=== PATIENT | male | born 1985 | race Caucasian/White ===

== ENCOUNTER 2016-12-15 14:13 | Emergency (ER) | payer SELFPAY ==
--- NOTE | 2016-12-15 14:42 | EDM.PDOC ---
ED HPI GENERAL MEDICAL PROBLEM - General Chief Complaint: Headache Stated Complaint: HEADACHES Time Seen by Provider: 12/15/16 14:23 - History of Present Illness INITIAL COMMENTS - FREE TEXT/NARRATIVE: HISTORY AND PHYSICAL: History of present illness: The patient is a 31-year-old male with a history of having headaches who has been seen by our neurologist Dr. Helton and has had testing including an MRI MRA of the head done at the end of November of this year. He had had some abnormal findings on a prior MRI so was repeated here and no abnormal findings were seen and there was no arterial circulatory issues. The patient states that since having that MRI/MRA he has not followed up with Dr. Helton and he had orders to have blood work done which he was supposed to have done in November but he has not done that yet and schedule to do it this Monday. The patient presents to the ED today with complaints of a several second long episode of "his mind going blank". What he is saying to me is that he was asked a question by a coworker which was very simple and he should've had the answer very quickly and easily and he felt like his mind went blank and then he was back to his baseline. He had no dizziness or lightheadedness no nausea no visual changes and no neural sensory changes or focal weakness. He did not pass out or black out and he has no neck or back pain. He has no recent trauma. The patient states he has had on-and-off headaches for the end of November and prior to seeing Dr. Helton which are not new or different. He takes a low-dose aspirin for these headaches. When he had this episode he took 4 baby aspirin because of his concerns. He was told to come in for evaluation if something like this ever happened. According to the patient he does feel like he is dehydrated as he has not been drinking much water or juices and did have alcohol last evening consisting of 2 mixed drinks and 4 shots of liquor. The patient currently does not feel confused and is at his baseline and has no focal neurologic complaints. He never had any speech or swallowing issues with his above symptoms. Review of systems: As per history of present illness and below otherwise all systems reviewed and negative. Past medical history: As per history of present illness and as reviewed below otherwise noncontributory. Surgical history: As per history of present illness and as reviewed below otherwise noncontributory. Social history: No reported history of drug or alcohol abuse. Family history: As per history of present illness and as reviewed below otherwise noncontributory. Physical exam: Gen.: Well-developed well-nourished man who is nontoxic and speaking clearly and easily in the ED. He moves easily without distress. Vital signs have been noted by me. HEENT: Atraumatic, normocephalic, pupils reactive, negative for conjunctival pallor or scleral icterus, mucous membranes moist, throat clear, neck supple, nontender, trachea midline. No nuchal rigidity or cervical adenopathy Lungs: Clear to auscultation, breath sounds equal bilaterally, chest nontender. Heart: S1S2, regular rate and rhythm no overt murmurs Abdomen: Soft, nondistended, nontender. Negative for masses or hepatosplenomegaly. Negative for costovertebral tenderness. Pelvis: Stable nontender. Genitourinary: Deferred. Rectal: Deferred. Extremities: Atraumatic, negative for cords or calf pain. Neurovascular unremarkable. Neuro: Awake, alert, oriented. Cranial nerves II through XII unremarkable. Cerebellum unremarkable. Motor and sensory unremarkable throughout. Exam nonfocal. Full range of motion without any drift in all extremities and gait is normal in the ED. Speech is intact. Diagnostics: CBC CMP CT scan of the head EKG Therapeutics: [] 1438: Case was discussed with Dr. Helton as the patient has been seen by her and was advised to come here if symptoms like this had occurred. According to her she was doing a hypercoagulable workup which she still wants the patient to go to outpatient lab and perform and she only wants a 6 CBC CMP and CAT scan of the head here. She states that the patient does have a history of alcohol use/ abuse which may be contributing to some of the symptomatology. I discussed with the patient my conversation with the neurologist and the plan to do CBC CMP EKG and CT scan of the head. I have reviewed the results of the MRI/MRA of the head performed December 01 of this year Impression: Brief episode of confusion stable etiology unclear Definitive disposition and diagnosis as appropriate pending reevaluation and review of above. headache Pain Score (Numeric/FACES): 4 - Related Data Allergies Allergy/AdvReac Type Severity Reaction Status Date / Time No Known Allergies Allergy Verified 12/15/16 14:31 Home Meds: Home Meds Aspirin [Lizy Chewable] 81 mg PO DAILY 12/15/16 [History] Past Medical History - Past Health History Medical/Surgical History: Denies Medical/Surgical History HEENT History: Reports: Sinusitis - Past Surgical History HEENT Surgical History: Reports: Adenoidectomy, Tonsillectomy Other HEENT Surgeries/Procedures: nasal septum surgery - 10 yrs ago Social & Family History - Tobacco Use Smoking Status *Q: Never Smoker Second Hand Smoke Exposure: No - Recreational Drug Use Recreational Drug Use: No ED ROS GENERAL - Review of Systems Review Of Systems: ROS reveals no pertinent complaints other than HPI. ED EXAM, GENERAL - Physical Exam Exam: See Below (See dictation) Course - Vital Signs Last Recorded V/S: Last Vital Signs Temp 36.3 C 12/15/16 14:32 Pulse 65 12/15/16 14:32 Resp 18 12/15/16 14:32 BP 131/63 12/15/16 14:32 Pulse Ox 97 12/15/16 14:32 - Orders/Labs/Meds Orders: Active Orders 24 hr Category Date Time Status EKG Documentation Completion [RC] STAT Care 12/15/16 14:42 Active Labs: Laboratory Tests 12/15/16 12/15/16 12/15/16 Range/Units 15:00 15:00 15:00 WBC 5.23 (4.0-11.0) K/uL RBC 4.88 (4.50-5.90) M/uL Hgb 15.7 (13.0-17.0) g/dL Hct 45.2 (38.0-50.0) % MCV 92.6 (80.0-98.0) fL MCH 32.2 H (27.0-32.0) pg MCHC 34.7 (31.0-37.0) g/dL RDW Std Deviation 49.8 (28.0-62.0) fl RDW Coeff of Kamryn 15 (11.0-15.0) % Plt Count 147 L (150-400) K/uL MPV 8.70 (7.40-12.00) fL Neut % (Auto) 61.7 (48.0-80.0) % Lymph % (Auto) 24.3 (16.0-40.0) % [place] % (Auto) 11.1 (0.0-15.0) % Eos % (Auto) 2.5 (0.0-7.0) % Baso % (Auto) 0.4 (0.0-1.5) % Neut # (Auto) 3.2 (1.4-5.7) K/uL Lymph # (Auto) 1.3 (0.6-2.4) K/uL [place] # (Auto) 0.6 (0.0-0.8) K/uL Eos # (Auto) 0.1 (0.0-0.7) K/uL Baso # (Auto) 0.0 (0.0-0.1) K/uL Nucleated RBC % 0.0 /100WBC Nucleated RBCs # 0 K/uL Sodium 138 (136-146) mmol/L Potassium 4.2 (3.5-5.1) mmol/L Chloride 103 (98-110) mmol/L Carbon Dioxide 27 (21-31) mmol/L BUN 14 (6.0-23.0) mg/dL Creatinine 0.9 (0.6-1.5) mg/dL Est Cr Clr Drug Dosing 125.50 mL/min Estimated GFR (MDRD) > 60.0 ml/min Glucose 87 (60-110) mg/dL Calcium 9.4 (8.8-10.8) mg/dL Total Bilirubin 0.9 (0.1-1.5) mg/dL AST 41 H (5-40) IU/L ALT 38 (8-54) IU/L Alkaline Phosphatase 62 (40-150) Troponin I < 0.10 (0.0-0.29) NG/ML Total Protein 7.8 (6.0-8.0) g/dL Albumin 4.5 (3.5-5.0) g/dL Globulin 3.3 (2.0-3.5) g/dL Albumin/Globulin Ratio 1.4 (1.3-2.8) Departure - Departure Time of Disposition: 15:51 Disposition: Home, Self-Care 01 Condition: Good Clinical Impression: Episode of confusion Chronic headaches Qualifiers: Headache type: unspecified Intractability: not intractable Qualified Code(s): R51 - Headache - Discharge Information Forms: ED Department Discharge Additional Instructions: The following information is given to patients seen in the emergency department who are being discharged to home. This information is to outline your options for follow-up care. We provide all patients seen in our emergency department with a follow-up referral. The need for follow-up, as well as the timing and circumstances, are variable depending upon the specifics of your emergency department visit. If you don't have a primary care physician on staff, we will provide you with a referral. We always advise you to contact your personal physician following an emergency department visit to inform them of the circumstance of the visit and for follow-up with them and/or the need for any referrals to a consulting specialist. The emergency department will also refer you to a specialist when appropriate. This referral assures that you have the opportunity for followup care with a specialist. All of these measure are taken in an effort to provide you with optimal care, which includes your followup. Under all circumstances we always encourage you to contact your private physician who remains a resource for coordinating your care. When calling for followup care, please make the office aware that this follow-up is from your recent emergency room visit. If for any reason you are refused follow-up, please contact the [facility] emergency department at and ask to speak to the emergency department charge nurse. [facility] Specialty care-[facility] [address] [place] [address], [address] [place] [address] [facility] Primary care- Internal Medicine and Family [address] [id number] Please perform the outpatient tests that were ordered by Dr. Helton and call and follow-up with her in her clinic. Return to ER as needed and as discussed. - My Orders Last 24 Hours: My Active Orders 12/15/16 14:42 EKG Documentation Completion [RC] STAT - Assessment/Plan Last 24 Hours: My Active Orders 12/15/16 14:42 EKG Documentation Completion [RC] STAT
--- NOTE | 2016-12-15 15:30 | CT ---
EXAMINATION: Non contrast CT head. Coronal and sagittal reformats. HISTORY: Pain COMPARISON: MRI dated 12/01/2016. FINDINGS: No evidence of intra or extra axial hemorrhage, midline shift, hydrocephalus or edema. 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 No hypoattenuation changes in the major vascular territories to suggest acute infarct. No abnormal intracranial calcifications are detected. No evidence of substantial vascular calcifications. Paranasal sinuses and mastoid air cells are well aerated without substantial findings. Pituitary fo ssa appears unremarkable. Calvarium is intact. No evidence of skull fracture. IMPRESSION: No acute intracranial findings.
[2016-12-15 15:34] LABS: CHLORIDE,CL 103 mmol/L (98-110); SODIUM,NA 138 mmol/L (136-146)
[2016-12-15 16:15] VITALS: BP 123/81
== END 2016-12-15 16:07 | disposition home or self-care (01) ==
LOC: MW.ED 14:13
DX: R51 Headache (principal); R41.0 Disorientation, unspecified; Z98.890 Other specified postprocedural states; Z79.82 Long term (current) use of aspirin
CPT/HCPCS: 36415; 70450; 70450-26; 80053; 84484; 85025; 93005; 99283; 99284-25

== ENCOUNTER 2018-08-24 11:22 | Emergency (ER) | payer OTHER ==
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
--- NOTE | 2018-08-24 12:11 | CR ---
EXAMINATION: Left tibia and fibula HISTORY: Lower extremity COMPARISON: None TECHNIQUE: 2 views FINDINGS/IMPRESSION: There is no acute osseous abnormality, dislocation, or fracture. Bone mineralization and joint spaces appear preserved. No soft tissue swelling distally.
[2018-08-24 12:43] VITALS: BP 118/80
== END 2018-08-24 12:42 | disposition home or self-care (01) ==
LOC: MW.ED 11:22
DX: S80.12XA Contusion of left lower leg, initial encounter (principal); V89.2XXA Person injured in unspecified motor-vehicle accident, traffic, initial encounter
CPT/HCPCS: 73590-26-LT; 73590-LT; 99283; 99283-25

== ENCOUNTER 2018-11-09 15:13 | Emergency (ER) | payer OTHER ==
--- NOTE | 2018-11-09 16:45 | CR ---
Indication: Injury, swelling and pain. Technique: Left tibia and fibula 4 views Comparison: 08/24/2018 Findings: Bones: Alignment is normal. No fractures or bone lesions. Joint spaces: Unremarkable. Soft tissues: Unremarkable. Impression: No sign of acute injury. Normal left tibia and fibula. Dictated by Rod Haley MD @ Nov 09 2018 4:34PM Signed by Dr. Rod Haley @ Nov 09 2018 4:42PM
--- NOTE | 2018-11-09 17:18 | US ---
INDICATION: Left leg pain and swelling x 1 week. TECHNIQUE: Ultrasound venous duplex left lower extremity. COMPARISON: None. FINDINGS: The left common femoral, superficial femoral, deep femoral, popliteal, posterior tibial, and greater saphenous veins are fully compressible normal waveforms. IMPRESSION: Normal ultrasound of the left lower extremity veins. Dictated by: Hiram Valenzuela MD @ 11/09/2018 17:15:48 (Electronically Signed)
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
[2018-11-09 17:41] VITALS: BP 141/73
== END 2018-11-09 17:41 | disposition home or self-care (01) ==
LOC: MW.ED 15:13
DX: M79.605 Pain in left leg (principal)
CPT/HCPCS: 36415; 73590-26-LT; 73590-LT; 85379; 93971-26-LT; 93971-LT; 99284-25

== ENCOUNTER 2019-07-19 08:55 | Emergency (ER) | payer OTHER ==
--- NOTE | 2019-07-19 09:16 | EDM.PDOC ---
ED HPI GENERAL MEDICAL PROBLEM - General Chief Complaint: Head Injury Stated Complaint: PT FELL AND HIT HEAD ON ICE Time Seen by Provider: 07/19/19 09:10 Source of Information: Reports: Patient - History of Present Illness INITIAL COMMENTS - FREE TEXT/NARRATIVE: 6 out of 10 headache after falling on ice. Positive LOC. Slipped on ice this got into the car at 830 this morning today. States he was by himself. He thinks he lost consciousness and was not sure how long he was on the ground. Got off the ground unassisted and drove himself here. Denies neck or back pain. Lives with his parents. Headache Pain Score (Numeric/FACES): 6 - Related Data Allergies Allergy/AdvReac Type Severity Reaction Status Date / Time No Known Allergies Allergy Verified 07/19/19 09:08 Home Meds: Home Meds . [No Known Home Meds] 05/30/18 [History] Past Medical History - Past Health History Medical/Surgical History: Denies Medical/Surgical History HEENT History: Reports: Sinusitis Neurological History: Reports: Headaches, Chronic, Other (See Below) Other Neuro History: minor stroke - Past Surgical History HEENT Surgical History: Reports: Adenoidectomy Other HEENT Surgeries/Procedures: nasal septum surgery - 10 yrs ago Social & Family History - Family History Family Medical History: Noncontributory - Caffeine Use Caffeine Use: Reports: Energy Drinks ED ROS GENERAL - Review of Systems Review Of Systems: See Below Constitutional: Denies: Fever, Weakness HEENT: Denies: Eye Pain Respiratory: Denies: Shortness of Breath Cardiovascular: Denies: Chest Pain GI/Abdominal: Denies: Abdominal Pain, Black Stool, Bloody Stool, Diarrhea Skin: Denies: Wound Neurological: Reports: Headache, Syncope. Denies: Numbness, Paresthesia, Trouble Speaking, Gait Disturbance ED EXAM, HEAD INJURY - Physical Exam Exam: See Below Text/Narrative:: General: alert, well appearing, no acute distress HEENT: No tenderness, swelling, abrasions, lacerations. Negative raccoon or sim signs. consciousness.. PERRL 3 mm bilat. Negative for conjunctival pallor or scleral icterus, mucous membranes moist, throat clear, Neck/back: supple, nontender, trachea midline. No step-off, crepitus, deformity. Lungs: Clear to auscultation, breath sounds equal bilaterally, chest nontender. Heart: S1S2, regular, negative for clicks, rubs, or JVD. Abdomen: Soft, nondistended, nontender. Negative for masses or hepatosplenomegaly. Negative for costovertebral tenderness. Pelvis: Stable nontender. Skin: warm, dry, good turgor. Musculoskeletal: soft compartments. Extremities: Atraumatic, negative for cords or calf pain. Neurovascular unremarkable. Neuro: Awake, alert, oriented. Cranial nerves II through XII unremarkable. Cerebellum unremarkable. Normal finger to target bilaterally. No motor or pronator drift. Stands and walks unassisted. Normal stance and gait. Motor and sensory unremarkable throughout. Exam nonfocal. Normal neuro exam. However, he appears to have had a concussion. EKG INTERPRETATION EKG Interpretation Comments: Ek bpm normal sinus rhythm normal axis normal NE, slightly prolonged QRS, normal QTC; right bundle branch block present; no acute ST changes Course - Vital Signs Text/Narrative:: Bmp: no clinically significant abnormalities Etoh: 206 (elevated) Cbc: nl Coags: nl Head ct: No skull fractures appreciated. 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 No acute findings. 11:00am Alert, fully oriented, well-appearing. Discussed with patient that I think he should consider getting help with his drinking. He is amenable to this. States that he will call a friend to pick him up. Patient advised that he should take it easy for the next 24 hours. He should follow-up with the primary care physician in 4 days if he has dizziness, nausea, or otherwise is unwell. Diagnostic impressions at this time are concussion, scalp contusion, and alcohol intoxication. Stable for discharge once his friend arrives to come and pick him up Last Recorded V/S: Last Vital Signs Temp 97.8 F 07/19/19 12:00 Pulse 73 07/19/19 12:00 Resp 16 07/19/19 12:00 BP 129/89 07/19/19 12:00 Pulse Ox 95 07/19/19 12:00 - Orders/Labs/Meds Orders: Active Orders 24 hr Category Date Time Status Blood Glucose Check, Bedside [RC] ONETIME Care 07/19/19 09:28 Active Cardiac Monitoring [RC] . DIRECTED Care 07/19/19 09:29 Active EKG Documentation Completion [RC] STAT Care 07/19/19 09:06 Active EKG Documentation Completion [RC] STAT Care 07/19/19 09:29 Active Height and Weight [RC] UPON Care 07/19/19 09:29 Inactive Initiate Acute Stroke Protocol [RC] STAT Care 07/19/19 09:29 Inactive Ready for Discharge [RC] PER UNIT ROUTINE Care 07/19/19 11:32 Active Peripheral IV Insertion Adult [OM.PC] Stat Oth 07/19/19 09:29 Ordered Labs: Laboratory Tests 07/19/19 07/19/19 07/19/19 Range/Units 09:40 09:45 09:45 WBC (4.0-11.0) K/uL RBC (4.50-5.90) M/uL Hgb (13.0-17.0) g/dL Hct (38.0-50.0) % MCV (80.0-98.0) fL MCH (27.0-32.0) pg MCHC (31.0-37.0) g/dL RDW Std Deviation (28.0-62.0) fl RDW Coeff of Kamryn (11.0-15.0) % Plt Count (150-400) K/uL MPV (7.40-12.00) fL Neut % (Auto) (48.0-80.0) % Lymph % (Auto) (16.0-40.0) % Benson % (Auto) (0.0-15.0) % Eos % (Auto) (0.0-7.0) % Baso % (Auto) (0.0-1.5) % Neut # (Auto) (1.4-5.7) K/uL Lymph # (Auto) (0.6-2.4) K/uL Benson # (Auto) (0.0-0.8) K/uL Eos # (Auto) (0.0-0.7) K/uL Baso # (Auto) (0.0-0.1) K/uL Nucleated RBC % /100WBC Nucleated RBCs # K/uL INR 0.97 Sodium 146 (136-148) mmol/L Potassium 3.8 (3.5-5.1) mmol/L Chloride 109 H (98-107) mmol/L Carbon Dioxide 28.0 (21.0-32.0) mmol/L BUN 13 (7.0-18.0) mg/dL Creatinine 1.0 (0.8-1.3) mg/dL Est Cr Clr Drug Dosing 109.81 mL/min Estimated GFR (MDRD) > 60.0 ml/min Glucose 115 H (74-106) mg/dL POC Glucose 102 (60-110) mg/dL Calcium 8.8 (8.5-10.1) mg/dL Ethyl Alcohol 206 mg/dL 07/19/19 Range/Units 09:45 WBC 4.99 (4.0-11.0) K/uL RBC 4.75 (4.50-5.90) M/uL Hgb 15.8 (13.0-17.0) g/dL Hct 45.5 (38.0-50.0) % MCV 95.8 (80.0-98.0) fL MCH 33.3 H (27.0-32.0) pg MCHC 34.7 (31.0-37.0) g/dL RDW Std Deviation 45.2 (28.0-62.0) fl RDW Coeff of Kamryn 13 (11.0-15.0) % Plt Count 178 (150-400) K/uL MPV 9.20 (7.40-12.00) fL Neut % (Auto) 53.3 (48.0-80.0) % Lymph % (Auto) 35.9 (16.0-40.0) % Benson % (Auto) 7.4 (0.0-15.0) % Eos % (Auto) 2.6 (0.0-7.0) % Baso % (Auto) 0.8 (0.0-1.5) % Neut # (Auto) 2.7 (1.4-5.7) K/uL Lymph # (Auto) 1.8 (0.6-2.4) K/uL Benson # (Auto) 0.4 (0.0-0.8) K/uL Eos # (Auto) 0.1 (0.0-0.7) K/uL Baso # (Auto) 0.0 (0.0-0.1) K/uL Nucleated RBC % 0.0 /100WBC Nucleated RBCs # 0 K/uL INR Sodium (136-148) mmol/L Potassium (3.5-5.1) mmol/L Chloride (98-107) mmol/L Carbon Dioxide (21.0-32.0) mmol/L BUN (7.0-18.0) mg/dL Creatinine (0.8-1.3) mg/dL Est Cr Clr Drug Dosing mL/min Estimated GFR (MDRD) ml/min Glucose (74-106) mg/dL POC Glucose (60-110) mg/dL Calcium (8.5-10.1) mg/dL Ethyl Alcohol mg/dL Meds: Medications Discontinued Medications Generic Name Dose Route Start Last Admin Trade Name Freq PRN Reason Stop Dose Admin Acetaminophen 500 mg 07/19/19 11:00 07/19/19 11:29 Tylenol Extra Strength PO 07/19/19 11:01 500 mg ONETIME ONE Administration Sodium Chloride 10 ml 07/19/19 09:28 Saline Flush FLUSH ASDIRECTED PRN Keep Vein Open Sodium Chloride 2.5 ml 07/19/19 09:28 Saline Flush FLUSH ASDIRECTED PRN Keep Vein Open Sodium Chloride 10 ml 07/19/19 09:28 Normal Saline IV ASDIRECTED PRN IV Use Departure - Departure Time of Disposition: 11:28 Disposition: Home, Self-Care 01 Condition: Good Clinical Impression: Concussion injury of brain, Alcohol intoxication, Scalp contusion - Discharge Information *PRESCRIPTION DRUG MONITORING PROGRAM REVIEWED*: Not Applicable *COPY OF PRESCRIPTION DRUG MONITORING REPORT IN PATIENT NAHOMY: Not Applicable Instructions: Head Injury, Adult, Alcohol Intoxication, [id number], Contusion , [id number] Referrals: PCP,None [Primary Care Provider] - 1 Week ([facility] - [facility] Medicine [address] [place] [address] ) Forms: ED Department Discharge Additional Instructions: You may leave the emergency department when your friend arrives to pick you up. For tonight, stay with an adult who can make sure that you can be awakened every 3-4 hours, for the next 24 hours. For the next 24 hours, refrain from heavy exertion. Also, do not drive, operate heavy machinery, or participate in activities that require good balance and concentration. Follow-up with a primary care provider within 1 week. We have referred you to a clinic if you do not have one. At that appointment, you need be exam, and also, please discuss getting help for heavy alcohol use. The following information is given to patients seen in the emergency department who are being discharged to home. This information is to outline your options for follow-up care. We provide all patients seen in our emergency department with a follow-up referral. The need for follow-up, as well as the timing and circumstances, are variable depending upon the specifics of your emergency department visit. If you don't have a primary care physician on staff, we will provide you with a referral. We always advise you to contact your personal physician following an emergency department visit to inform them of the circumstance of the visit and for follow-up with them and/or the need for any referrals to a consulting specialist. The emergency department will also refer you to a specialist when appropriate. This referral assures that you have the opportunity for follow-up care with a specialist. All of these measure are taken in an effort to provide you with optimal care, which includes your follow-up. Under all circumstances we always encourage you to contact your private physician who remains a resource for coordinating your care. When calling for follow-up care, please make the office aware that this follow-up is from your recent emergency room visit. If for any reason you are refused follow-up, please contact the [facility] at and asked to speak to the emergency department charge nurse. [facility] [address] [place] [id number] [address] Sepsis Event Note - Focused Exam Vital Signs: Vital Signs Temp Pulse Resp BP Pulse Ox 07/19/19 12:00 97.8 F 73 16 129/89 95 Date Exam was Performed: 07/19/19 Time Exam was Performed: 22:57 - My Orders Last 24 Hours: My Active Orders 07/19/19 09:06 EKG Documentation Completion [RC] STAT 07/19/19 09:28 Blood Glucose Check, Bedside [RC] ONETIME 07/19/19 09:29 Cardiac Monitoring [RC] . DIRECTED EKG Documentation Completion [RC] STAT Height and Weight [RC] UPON Initiate Acute Stroke Protocol [RC] STAT Peripheral IV Insertion Adult [OM.PC] Stat 07/19/19 11:32 Ready for Discharge [RC] PER UNIT ROUTINE - Assessment/Plan Last 24 Hours: My Active Orders 07/19/19 09:06 EKG Documentation Completion [RC] STAT 07/19/19 09:28 Blood Glucose Check, Bedside [RC] ONETIME 07/19/19 09:29 Cardiac Monitoring [RC] . DIRECTED EKG Documentation Completion [RC] STAT Height and Weight [RC] UPON Initiate Acute Stroke Protocol [RC] STAT Peripheral IV Insertion Adult [OM.PC] Stat 07/19/19 11:32 Ready for Discharge [RC] PER UNIT ROUTINE
[2019-07-19] MEDS ORDERED: Sodium Chloride 0.9% 2.5 ML Syringe FLUSH PRN (09:28)
[2019-07-19] MEDS ORDERED: Sodium Chloride 0.9% 10 ML SDV IV PRN (09:28)
[2019-07-19] MEDS ORDERED: Sodium Chloride 0.9% 10 ML Syringe FLUSH PRN (09:28)
--- NOTE | 2019-07-19 09:44 | CT ---
Head CT Technique: Multiple axial sections of the brain were obtained. Intravenous contrast was not utilized. Comparison: Prior head CT study of 12/15/16. Findings: Ventricles along with basal cisterns and sulci over the convexities appear within normal limits for the patient's age. Minimal area of increased density is noted within the medial left temporal lobe which is stable from previous exam which was mentioned previously as representing a cavernous hemangioma. No other abnormal parenchymal densities are seen. No evidence of intracranial hemorrhage. No midline shift or mass-effect is seen. Bone window settings were reviewed. Visualized paranasal sinuses show nothing acute. Mastoid sinuses also show nothing acute. Mild deformity of the nasal bone is seen compatible with old injury. No acute calvarial abnormality is appreciated. Impression: 1. 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 2. Nothing acute is identified on noncontrast head CT exam. Diagnostic code #2 This report was dictated in Mountain Standard Time
[2019-07-19 10:23] LABS: BLOOD UREA NITROGEN,BUN 13 mg/dL (7.0-18.0); CHLORIDE,CL 109 mmol/L (98-107); GLUCOSE RANDOM 115 mg/dL (74-106); POTASSIUM,K 3.8 mmol/L (3.5-5.1); SODIUM,NA 146 mmol/L (136-148)
[2019-07-19] MEDS ORDERED: Acetaminophen 500 MG Tab PO ONE (11:00)
[2019-07-19 12:01] VITALS: BP 129/89; PULSE 73
== END 2019-07-19 12:00 | disposition home or self-care (01) ==
LOC: MW.ED 08:55
DX: S06.0X9A Concussion with loss of consciousness of unspecified duration, initial encounter (principal); S00.03XA Contusion of scalp, initial encounter; F10.120 Alcohol abuse with intoxication, uncomplicated; Y90.7 Blood alcohol level of 200-239 mg/100 ml; Z86.73 Personal history of transient ischemic attack (TIA), and cerebral infarction without residual deficits; W00.0XXA Fall on same level due to ice and snow, initial encounter
CPT/HCPCS: 70450; 80048; 80307; 82962; 85025; 85610; 93005; 99284; A9270; 99283

== ENCOUNTER 2019-08-04 18:49 | Emergency (ER) | payer OTHER ==
--- NOTE | 2019-08-04 19:21 | EDM.PDOC ---
ED HPI GENERAL MEDICAL PROBLEM - General Chief Complaint: Drug or Alcohol Abuse Stated Complaint: SICK Time Seen by Provider: 08/04/19 19:04 Source of Information: Reports: Patient History Limitations: Reports: No Limitations - History of Present Illness INITIAL COMMENTS - FREE TEXT/NARRATIVE: JOSUE HPI: This is a 34-year-old male that admits to being on an alcohol binge up to half a liter a day of vodka. Patient has been in treatment for alcohol in the past. He presents here for help quitting the alcohol. He wishes to be placed on Antabuse. He is not currently in treatment. He says there are stressors in his life that is causing him to drink heavily. The last time he went 5 days without alcohol was a month ago and had some shakes but no hallucinations or seizures. 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 He denies suicidal or homicidal ideations auditory or visual hallucinations he mentions problems with his blood pressure but he is not actually checked his blood pressure in months and today his blood pressure is normal he denies any chest pain blurry vision headache slurred speech numbness weakness or tingling PMHX/PSHX: Alcoholism otherwise negative Social History: Negative for tobacco, positive for alcohol, negative for street drugs or marijuana Family history: Hypertension ROS: see chart PE: VS afebrile vital signs stable General: No apparent distress Head: Atraumatic normocephalic no lumps bumps or bruises Eyes: EOMI PERRLA Ears: TMs intact no hemotympanum no signs of infection no mastoid tenderness Nose: No epistaxis nares patent no septal wall hematoma Throat: No pharyngeal erythema or exudate no tonsillar enlargement Neck: Supple, no cervical lymphadenopathy Chest wall: No point tenderness Heart: Regular rate and rhythm without murmur gallop or rub Lungs: Clear to auscultation and percussion without rales rhonchi or wheeze Abdomen: Soft nontender nondistended without guarding rigidity or rebound Neck: No spinal point tenderness full range of motion in all 6 directions Back: No spinal paraspinal or CVA tenderness Extremities: full rom through out. no effusions skin: Warm dry intact no rashes neurologic: cranial nerves II through XII intact. No focal motor or sensory deficits noted MDM: Differential diagnosis: Alcoholism ED course: Patient shows no signs of being withdrawal is not tachycardic or tremulous. We will get him set up with outpatient referrals. I told this patient that it would be unwise to start him on anti-abuse without treatment. Patient was advised to slowly wean himself off of alcohol by reducing his intake by 50% every 2 days. Patient was given outpatient referrals for further help with his alcoholism Diagnosis: Alcoholism Disposition: Home - Related Data Allergies Allergy/AdvReac Type Severity Reaction Status Date / Time No Known Allergies Allergy Verified 08/04/19 19:02 Home Meds: Home Meds . [No Known Home Meds] 05/30/18 [History] Past Medical History - Past Health History Medical/Surgical History: Denies Medical/Surgical History HEENT History: Reports: Sinusitis Neurological History: Reports: Headaches, Chronic, Other (See Below) Other Neuro History: minor stroke - Infectious Disease History Infectious Disease History: Reports: None - Past Surgical History HEENT Surgical History: Reports: Adenoidectomy Other HEENT Surgeries/Procedures: nasal septum surgery - 10 yrs ago Social & Family History - Family History Family Medical History: Noncontributory - Tobacco Use Smoking Status *Q: Unknown Ever Smoked - Caffeine Use Caffeine Use: Reports: None - Recreational Drug Use Recreational Drug Use: No ED ROS GENERAL - Review of Systems Review Of Systems: See Below Reason Not Obtained: See my note - Physical Exam Exam: See Below Text/Narrative:: see My H&P Course - Vital Signs Last Recorded V/S: Last Vital Signs Temp 36.3 C 08/04/19 19:02 Pulse 88 08/04/19 19:02 Resp 17 08/04/19 19:02 BP 149/86 H 08/04/19 19:02 Pulse Ox 95 08/04/19 19:02 Departure - Departure Time of Disposition: 19:19 Disposition: Home, Self-Care 01 Condition: Good Clinical Impression: Alcohol abuse - Discharge Information Instructions: Alcohol Use Disorder, Chemical Dependency, Finding Treatment for Addiction Referrals: PCP,None [Primary Care Provider] - Additional Instructions: Follow-up with the resources provided to you by the nursing staff. reduce your alcohol intake by 50% every 48 hours Sepsis Event Note - Evaluation Sepsis Screening Result: No Definite Risk - Focused Exam Vital Signs: Vital Signs Temp Pulse Resp BP Pulse Ox 08/04/19 19:02 36.3 C 88 17 149/86 H 95 Date Exam was Performed: 08/04/19 Time Exam was Performed: 19:15
[2019-08-04 19:54] VITALS: BP 126/77; PULSE 75
== END 2019-08-04 19:54 | disposition home or self-care (01) ==
LOC: MW.ED 18:49
DX: F10.20 Alcohol dependence, uncomplicated (principal)
CPT/HCPCS: 99283

== ENCOUNTER 2021-09-07 16:04 | Emergency (ER) | payer MEDICAID ==
[2021-09-07] MEDS ORDERED: Thiamine 100 MG Tab PO STA (16:28)
[2021-09-07] MEDS ORDERED: Folic Acid/Vitamin B Complex With C Cap PO STA (16:28)
[2021-09-07] MEDS ORDERED: Lactated Ringers 1,000 ML IV ONE (16:29)
[2021-09-07] MEDS ORDERED: Ondansetron 4 MG/2 ML SDV IVPUSH ONE (16:35)
[2021-09-07] MEDS ORDERED: LORazepam 2 MG/ML SDV IVPUSH ONE ×2 (16:42→18:40)
[2021-09-07 17:24] LABS: BLOOD UREA NITROGEN,BUN 9 mg/dL (7.0-18.0); CARBON DIOXIDE,CO2 21.9 mmol/L (21.0-32.0); CHLORIDE,CL 101 mmol/L (98-107); GLUCOSE RANDOM 137 mg/dL (74-106); LIPASE 67 U/L (73-393); POTASSIUM,K 3.6 mmol/L (3.5-5.1); SODIUM,NA 139 mmol/L (136-148)
[2021-09-07 19:10] VITALS: BP 118/87; PULSE 87
== END 2021-09-07 19:15 | disposition home or self-care (01) ==
LOC: MW.ED 16:04
DX: F10.239 Alcohol dependence with withdrawal, unspecified (principal)
CPT/HCPCS: 36415; 80053; 80305; 80307; 83690; 83735; 85025; 96374; 96375; 96376; 99284; A9270; J2060; J2405; J7120; 99283

== ENCOUNTER 2024-05-29 16:52 | Emergency (ER) | payer BC ==
[2024-05-29] MEDS: Lidocaine 4% 1 each Patch TOP ONE (18:17)
[2024-05-29] MEDS: predniSONE 20 MG Tab PO ONE (18:17)
[2024-05-29] MEDS: Ketorolac 30 MG/ML SDV IM ONE (18:27)
[2024-05-29 18:41] VITALS: BP 116/72; PULSE 81
== END 2024-05-29 18:38 | disposition home or self-care (01) ==
LOC: MW.ED 16:52
DX: M54.9 Dorsalgia, unspecified (principal); Z75.8 Other problems related to medical facilities and other health care; Z79.899 Other long term (current) drug therapy
CPT/HCPCS: 96372; 99283; A9270; J1885